=== PATIENT | male | born 1955 | race American Indian/Alaskan Native ===

== ENCOUNTER 2017-10-24 09:38 | Outpatient (CLI) | payer OTHER ==
--- NOTE | 2017-10-24 15:46 | XRay Report ---
FINAL REPORT EXAM: XR SPINE LUMBOSACRAL 2-3V HISTORY: DISABILITY EXAM, PTSD, BACK AND SHOULDERPROBLEMS, HYPERTENSION TECHNIQUE: AP, lateral and lumbosacral spot views of the lumbar spine. PRIORS: None. FINDINGS: There are five lumbar type vertebral bodies. There is mild dextroconvex curvature of the lumbar spine. No compression fracture. Anterior osteophyte formations and facet arthropathy are seen throughout the lumbar spine. There is disc space narrowing at L2-3, L4-5 and L5-S1. The paravertebral soft tissues are normal. Atherosclerotic calculi are seen in the abdominal aorta. IMPRESSION: Multilevel degenerative disc disease and facet arthropathy of the lumbar spine.
--- NOTE | 2017-10-24 15:50 | XRay Report ---
FINAL REPORT EXAM: XR SHOULDER 2+V RT HISTORY: DISABILITY EXAM, PTSD, BACK AND SHOULDERPROBLEMS, HYPERTENSION TECHNIQUE: Three views of the right shoulder. PRIORS: None. FINDINGS: No fracture. No dislocation. Normal mineralization. No soft tissue abnormality. Calcifications of the coracoclavicular ligament are seen. Mild degenerative changes of the right glenohumeral and acromioclavicular joints are seen. IMPRESSION: 1. Mild osteoarthritis of the right shoulder. 2. Calcifications of the coracoclavicular ligament can be seen in prior trauma or renal failure.
== END 2017-10-24 09:39 | disposition home or self-care (01) ==
LOC: XRAY 09:38
PROVIDERS: ATTEND Internal Medicine
DX: Z02.71 Encounter for disability determination (principal); M19.011 Primary osteoarthritis, right shoulder; M47.897 Other spondylosis, lumbosacral region; M46.87 Other specified inflammatory spondylopathies, lumbosacral region; I71.4 Abdominal aortic aneurysm, without rupture
CPT/HCPCS: 72100